=== PATIENT | male | born 1945 | race Caucasian/White ===

== ENCOUNTER → 2017-12-04 | Outpatient (CLI) | payer OTHER ==
--- NOTE | 2017-12-08 11:36 | CODING QUERY NO DIAGNOSIS ---
TREATMENT RENDERED WITHOUT A DIAGNOSIS : 46 To promote full compliance with coding requirements relating to patient care, physician participation is requested in all cases of bankman uncertainty. Please assist us with providing a diagnosis/symptom for the test(s) below: A diagnosis/symptom was not documented on your Order. A valid diagnosis/symptom is required to bill all insurances. Please remember that we are unable to code a diagnosis of rule out, probable, possible, questionable, or suspected. Tests that require a diagnosis: DOS: 12/04/17 * SYNOVIAL FLUID, CELL DIAGNOSIS: * SYNOVIAL FLUID CRYST DIAGNOSIS: * AERO/ANAE CULTURE DIAGNOSIS: Provider Signature: Date: Thank you Ch[facility] Once completed, please kindly fax back to [phone] For questions please call [phone]
== END | disposition home or self-care (01) ==
LOC: C.LAB1850 16:21
PROVIDERS: ATTEND Physician Assistant
DX: M96.842 Postprocedural seroma of a musculoskeletal structure following a musculoskeletal system procedure (principal)

== ENCOUNTER → 2017-12-11 | Outpatient (CLI) | payer OTHER | END | disposition home or self-care (01) | LOC: C.LABSPEC 16:29 | PROVIDERS: ATTEND Orthopaedic Surgery | DX: L02.413 Cutaneous abscess of right upper limb (principal) ==